=== PATIENT | male | born 1995 | race Caucasian/White ===

== ENCOUNTER 2021-04-27 18:41 | Emergency (ER) | payer OTHER ==
[2021-04-27 19:01] VITALS: BP 139/78; PULSE 78; TEMP 98.2; BMI 43.5
[2021-04-27] MEDS ORDERED: DIPHTH,PERTUSS(ACELL),TET 0.5 ML DISP.SYRIN IM ONE ×2 (20:32→20:55)
== END 2021-04-27 21:25 | disposition home or self-care (01) ==
LOC: JERFT 18:41
PROC: 0HQFXZZ Repair Right Hand Skin, External Approach (ICD-10-PCS; principal; 2021-04-27)
PROC: 3E0234Z Introduction of Serum, Toxoid and Vaccine into Muscle, Percutaneous Approach (ICD-10-PCS; 2021-04-27)
DX: S61.011A Laceration without foreign body of right thumb without damage to nail, initial encounter (principal); W25.XXXA Contact with sharp glass, initial encounter
CPT/HCPCS: 73140-TC-RT-FY; 90715; 99283-25

== ENCOUNTER 2021-05-07 15:53 | Emergency (ER) | payer OTHER ==
[2021-05-07 16:15] VITALS: BP 123/79; PULSE 89; TEMP 98; BMI 46.8
== END 2021-05-07 18:01 | disposition home or self-care (01) ==
LOC: JERFT 15:53
DX: S61.011A Laceration without foreign body of right thumb without damage to nail, initial encounter (principal); W25.XXXA Contact with sharp glass, initial encounter; Z48.02 Encounter for removal of sutures
CPT/HCPCS: 99281-25